=== PATIENT | male | born 1950 ===

== ENCOUNTER 2020-08-28 06:53 | Day surgery (SDC) | payer OTHER ==
[~2020-08-28] VITALS: Ht 172.7 cm; Wt 72.6 kg
[~2020-08-28 06:53] MED LIST: FAMOTIDINE20 M1 PO; STOOL SOFTENER100 M1 PO; XOPENEX HF45 MCG/ACT IN; [UNRECOGNIZED DRUG - REMARK] PO
[2020-08-28 12:11] VITALS: BP 118/74
== END 2020-08-28 11:05 | disposition home or self-care (01) | DRG 392 ==
LOC: ENDO 06:53 → ORM 11:05
PROVIDERS: ATTEND Surgery
PROC: 0DJ08ZZ Inspection of Upper Intestinal Tract, Via Natural or Artificial Opening Endoscopic (ICD-10-PCS; principal; 2020-08-28)
DX: K44.9 Diaphragmatic hernia without obstruction or gangrene (principal); K29.70 Gastritis, unspecified, without bleeding